=== PATIENT | female | born 1960 | race Caucasian/White ===

== ENCOUNTER 2016-08-25 08:43 | Emergency (ER) | payer MEDICARE, OTHER ==
[~2016-08-25] VITALS: Ht 165.1 cm; Wt 83.0 kg
[~2016-08-25 08:43] MED LIST: ADVAI100I PO; CEFD300C PO; CIPR750T10 PO; ROBIDM5S PO; ZITH250T PO
[2016-08-25 08:56] VITALS: BP 111/73; PULSE 108; RESP 16; TEMP 98.1; O2SAT 96
[2016-08-25] MEDS ORDERED: BUPR100CR PO (09:08)
[2016-08-25] MEDS ORDERED: OCEA0.653 EACH NARE (09:50)
[2016-08-25] MEDS ORDERED: BENZ100 PO (09:50)
[2016-08-25] MEDS ORDERED: AZIT250T3 PO (09:50)
--- NOTE | 2016-08-25 09:50 | PD ---
HPI Chief Complaint: Cold / Flu Symptoms Time Seen by Provider: 09:08 Travel History International Travel<30 days: No Contact w/Intl Traveler<30days: No Traveled to known affect area: No History of Present Illness HPI The patient is 56 years old. She reports about a month or so of cough and rhinorrhea. It's worse at night. Possible subjective fever is reported. She' s tried 3 bottles intake well which has only been a little bit helpful. She reports a similar episode occurred about one year ago and was diagnosed and treated effectively as pneumonia. The patient smokes one pack of cigarettes per day. She also reports in the sore throat since this morning. No international travel or sick contacts. She denies past medical history otherwise PFSH Past Medical History Arthritis: Yes (possible RA, patient states she does not take any medications for this) Depression: Yes Diminished Hearing: No Fibromyalgia: Yes ?: Not Menopausal: Yes Past Surgical History Tonsillectomy: Yes Other Surgery: Yes (RIGHT KNEE A CHILD) Social History Alcohol Use: Yes Tobacco Use: Yes (/2 PPD) Substance Use: No Allergies-Medications (Allergen,Severity, Reaction): Coded Allergies: No Known Allergies (Unverified , 08/25/16) Reported Meds & Prescriptions Reported Meds & Active Scripts Active [place] Nasal [place] (Sodium Chloride) 0.65% [place] 2 [place] EACH NARE DIRECTED PRN Tessalon Perles (Benzonatate) 100 Mg Cap 200 Mg PO TID PRN 5 Days Azithromycin 250 Mg Tab 250 Mg PO DIRECTED Take 2 tabs (500 mg) on day 1 then 1 tab daily x 4 days. Reported Wellbutrin SR 12 HR (Bupropion HCl) 100 Mg Tab Unknown Dose PO Q12HR Review of Systems General / Constitutional: Positive: Fever HENT: Positive: Sore Throat, Congestion Respiratory: Positive: Cough, No: Shortness of Breath Physical Exam Narrative GENERAL: Pleasant 56-year-old female no acute distress ENT: There is no exudate tonsillar hypertrophy or asymmetry. SKIN: Warm and dry. HEAD: Normocephalic. RESPIRATORY: Breath sounds equal bilaterally. No accessory muscle use. Occasional coarse breath sounds. GASTROINTESTINAL: Abdomen soft, non-tender, nondistended. MUSCULOSKELETAL: No cyanosis, or edema. BACK: Nontender without obvious deformity. No CVA tenderness. CARDIAC: Regular. Tachycardia. Data Data Last Documented VS Vital Signs Date Time Temp Pulse Resp B/P Pulse Ox O2 Delivery O2 Flow Rate FiO2 08/25/16 08:56 98.1 108 16 111/73 96 Orders Albuterol Hfa Inh (Proair Hfa Inh) (08/25/16 10:00) Dexamethasone Inj (Decadron Inj) (08/25/16 10:00) MDM Medical Decision Making Medical Screen Exam Complete: Yes Emergency Medical Condition: Yes Medical Record Reviewed: Yes Differential Diagnosis Pneumonia URI influenza bronchitis Narrative Course Treatments as below return precautions discussed. Patient received an albuterol inhaler here and a Decadron IM injection. Diagnosis Primary Impression: Cough Referrals: Primary Care Physician 2 days Additional Instructions: You have a choice when it comes to health care, and we are glad that you chose [email or web address]. Hopefully, we have met your expectations on today's visit. You are welcome to return to [email or web address] at any time, as we are committed to meeting the health care needs of our community. Med/Other Pt SpecificInfo: Prescription(s) given Scripts Saline Nasal ([place] Nasal [place])0.65% Spray2 [place] EACH NARE DIRECTED PRN ( NASAL CONGESTION) #1 BOTTLE Ref 0 Prov:Jabier Angela MD 08/25/16 Benzonatate (Tessalon Perles)100 Mg [id number] Mg PO TID PRN (COUGH) 5 Days Ref 0 Prov:Jabier Angela MD 08/25/16 Azithromycin 250 Mg [id number] Mg PO DIRECTED #6 TAB Ref 0 Take 2 tabs (500 mg) on day 1 then 1 tab daily x 4 days. Prov:Jabier Angela MD 08/25/16 Disposition: 01 DISCHARGE HOME Condition: Stable Jabier Angela MD Aug 25, 2016 09:50
[2016-08-25] MEDS ORDERED: ALBUTEROL SULFATE 90 MCG/ACT HFA 8 GM INHALER INH ONE (10:00)
[2016-08-25] MEDS ORDERED: DEXAMETHASONE SOD PHOS 20 MG/5 ML VIAL IM ONE (10:00)
== END 2016-08-25 10:32 | disposition home or self-care (01) ==
LOC: PHEFT 08:43
DX: R05 Cough (principal); J02.9 Acute pharyngitis, unspecified; F17.210 Nicotine dependence, cigarettes, uncomplicated
CPT/HCPCS: 96372; 99283; J1100